=== PATIENT | male | born 1945 | race Caucasian/White ===

== ENCOUNTER 2017-09-19 09:05 | Outpatient (CLI) | payer MEDICARE ==
[2017-09-19 10:21] LABS: Anion Gap 9 mmol/L (10-20); BUN (Urea Nitrogen) 24 mg/dL (8.4-25.7); Calc. Creatinine Clearance 0 mL/min (70-130); Calcium 9.2 mg/dL (7.8-10.44); Carbon Dioxide 31 mmol/L (23-31); Chloride 102 mmol/L (98-107); Estimated GFR-MDRD 79; Glucose 116 mg/dL (83-110); Potassium 3.4 mmol/L (3.5-5.1); Sodium 139 mmol/L (136-145)
--- NOTE | 2017-09-23 08:46 | EKG ---
Test Reason : Blood Pressure : / mmHG Vent. Rate : 067 BPM Atrial Rate : 067 BPM P-R Int : 162 ms QRS Dur : 096 ms QT Int : 424 ms P-R-T Axes : 047 038 077 degrees QTc Int : 448 ms Normal sinus rhythm Normal ECG When compared with ECG of 22-FEB-2007 10:37, No significant change was found Confirmed by NANO THORNTON MD ([id number]) on 09/23/2017 8:46:11 AM Referred By: MARS Confirmed By:NANO THORNTON MD
== END 2017-09-19 09:06 | disposition home or self-care (01) ==
LOC: LABBT 09:05
PROVIDERS: ATTEND Neurological Surgery
DX: Z01.818 Encounter for other preprocedural examination (principal); M48.061 Spinal stenosis, lumbar region without neurogenic claudication
CPT/HCPCS: 80048; 93005; 93010

== ENCOUNTER 2017-09-24 07:57 | Day surgery (SDC) | payer MEDICARE ==
[2017-09-19 09:22] VITALS: BMI 32.5
--- NOTE | 2017-09-23 22:16 | HP ---
HISTORY OF PRESENT ILLNESS: Mr. Rankin is a pleasant 71-year-old man known to us from prior evaluati on of both neck and low back complaints, who returns now from a referral by Dr. Yan for an MR I at the [facility] of the lumbar spine that reveals profound stenosis centrally at L2-L3 as w ell as L1-L2, although this is to a lesser extent. His major symptom presentation fits perfectly wit h that of neurogenic claudication. He is ready to discuss surgery at the outset of our conversation. PAST MEDICAL HISTORY: Significant for hypertension, back and neck pain, asthma. PAST SURGICAL HISTORY: Appendectomy, colon resection, lumbar back surgery, neck surgery. CURRENT MEDICATIONS: Lisinopril, hydrochlorothiazide, carvedilol, hydrocodone, meloxicam, amlodipine , Symbicort, gabapentin, and tizanidine. ALLERGIES: No known drug allergies. PHYSICAL EXAMINATION: GENERAL: The patient is alert and oriented x3. EXTREMITIES: His gait is slow and antalgic. Lower extremity motor exam is normal. He has a negativ e straight leg raise bilaterally. ASSESSMENT: Lumbar stenosis, neurogenic claudication. PLAN: Dr. Nguyen met with the patient, reviewed imaging, and advocated for an L1 through L3 decompres ike. He explained to the patient the risks, benefits, and alternatives to the procedure. The patie nt expressed understanding and would like to move forward with surgery as discussed. I do believe th at the patient is mentally competent and capable of making medical decisions for himself. We will mo ve forward with surgery as planned. Ruben Gonzalez PA-C dictating for Dr. Nguyen.
[2017-09-24] MEDS ORDERED: Fentanyl 100 MCG/2 ML VIAL ONE ×2 (08:39→13:02)
[2017-09-24] MEDS ORDERED: CEFAZOLIN/Water 2 GM/20 ML SYRINGE ONE ×2 (08:47→14:30)
[2017-09-24] MEDS ORDERED: Thrombin 5000 UNITS/5 ML VIAL ONE (09:16)
[2017-09-24] MEDS ORDERED: Bupivacaine HCl 0.5%/Epinephrine 1:200,000/PF 30 ml Vial ONE (09:16)
[2017-09-24] MEDS ORDERED: PHENYLEPHRINE-NS 100 MCG/ML 10 ML SYRINGE ONE (12:03)
[2017-09-24] MEDS ORDERED: PROPOFOL 200 MG/20 ML VIAL ONE (12:03)
[2017-09-24] MEDS ORDERED: ePHEDrine/0.9% NaCl/PF SYRINGE 50 mg/10 ml ONE (12:03)
[2017-09-24] MEDS ORDERED: Ketorolac Tromethamine 30 MG/ML VIAL ONE (12:03)
[2017-09-24] MEDS ORDERED: Lidocaine 1% PF 5 ML VIAL ONE (12:03)
--- NOTE | 2017-09-24 13:40 | OP ---
DATE OF PROCEDURE: 09/24/2017 SURGEON: Mohinder Nguyen M.D. HISTOLOGY SPECIALIST: Ruben Gonzalez PA-C INDICATION: Pain. DIAGNOSIS: Lumbar stenosis. PROCEDURE: L1 through L3 lumbar decompression. ANESTHESIA: General. TECHNIQUE: The patient was brought into the operating room and placed under general anesthesia. He was flipped from a supine to prone position on the operating room table. A linear incision was plann ed spanning L1 through L3. After prepping and draping and after an appropriate operative pause, the incision was created. The soft tissues swept away from midline. Self-retaining retractors were plac ed in the wound for optimal exposure. After confirming the appropriate levels of C-arm fluoroscopy, an Adson rongeur was used to remove the spinous process of L2, the inferior aspect of L1 and superior aspect of L3. High-speed cutting drill bit as well as 2, 3 and 4 mm Kerrisons were used to perform a laminectomy. Laminectomy was extended laterally to encompass the medial aspect of the facet joints . At the end the procedure, L1-2 and L2-3 segments were decompressed. The wound was irrigated. Hem ostasis was maintained throughout. The wound was then closed in anatomic layers and a pressure dress ing was applied. There were no known procedural complications.
== END 2017-09-24 15:15 | disposition home or self-care (01) ==
LOC: SDC 07:57
PROVIDERS: ATTEND Neurological Surgery
PROC: 00NY0ZZ Release Lumbar Spinal Cord, Open Approach (ICD-10-PCS; principal; 2017-09-24)
DX: M48.062 Spinal stenosis, lumbar region with neurogenic claudication (principal); I10 Essential (primary) hypertension; J45.909 Unspecified asthma, uncomplicated; M19.90 Unspecified osteoarthritis, unspecified site; Z98.890 Other specified postprocedural states
CPT/HCPCS: 76001; 96374; J0670; J1885; J2001; J2704; J3010

== ENCOUNTER 2019-06-27 08:10 | Outpatient (CLI) | payer MEDICARE ==
[2019-06-27 12:52] LABS: #Eosinphils 0.4 thou/uL (0.0-0.7); #Lymphocytes 1.5 thou/uL (1.20-3.40); #Monocytes 0.7 thou/uL (0.11-0.59); #Neutrophils 3.7 thou/uL (1.40-6.50); %Basophils 0.6 % (0.0-1.0); %Eosinophils 6.8 % (0.0-10.0); %Lymphocytes 24.1 % (21.0-51.0); %Monocytes 10.6 % (0.0-10.0); %Neutrophils 57.9 % (42.0-75.0); Hemoglobin 14.7 g/dL (14.0-18.0); Mean Corpuscular HGB CONC 33.4 g/dL (32.0-36.0); Mean Corpuscular Hemoglobin 31.8 pg (27.0-31.0); Mean Corpuscular Volume 95.2 fL (78.0-98.0); Mean Platelet Volume 7.4 fL (7.4-10.4); Platelet Count 202 thou/uL (130-400); RBC Distribution Width 12.2 % (11.5-14.5); Red Blood Cell (RBC) Count 4.62 mill/uL (4.70-6.10); White Blood Cell (WBC) Count 6.4 thou/uL (4.8-10.8)
[2019-06-27 13:18] LABS: ALT (SGPT) 14 U/L (8-55); AST (SGOT) 19 U/L (5-34); Albumin 4.2 g/dL (3.4-4.8); Alkaline Phosphatase 80 U/L (40-110); Anion Gap 11 mmol/L (10-20); BUN (Urea Nitrogen) 21 mg/dL (8.4-25.7); Bilirubin, Total 0.6 mg/dL (0.2-1.2); Calc. Creatinine Clearance 0 mL/min (70-130); Calcium 9.4 mg/dL (7.8-10.44); Carbon Dioxide 32 mmol/L (23-31); Chloride 102 mmol/L (98-107); Estimated GFR-MDRD 83; Globulin 2.5 g/dL (2.4-3.5); Glucose 86 mg/dL (83-110); Potassium 4.4 mmol/L (3.5-5.1); Protein, Total 6.7 g/dL (5.8-8.1); Sodium 141 mmol/L (136-145)
== END 2019-06-27 08:11 | disposition home or self-care (01) ==
LOC: LABBT 08:10
PROVIDERS: ATTEND Internal Medicine Cardiovascular Disease
DX: Z01.812 Encounter for preprocedural laboratory examination (principal); R94.39 Abnormal result of other cardiovascular function study
CPT/HCPCS: 80053; 85025

== ENCOUNTER → 2019-07-02 | Day surgery (SDC) | payer MEDICARE ==
[2019-06-27 11:43] VITALS: BMI 32.3
[~2019-07-02] MED LIST: Diazepam 5 MG TAB ONE; Fentanyl 100 MCG/2 ML VIAL ONE; Heparin (Artline) 1,000 ML ONE; Heparin 10,000 UNITS/1 ML VIAL ONE; Iopamidol 370 76% 100 ML VIAL ONE; Lidocaine 1% (PF) 30 ML VIAL ONE; Midazolam HCl 2 mg/2 ml Vial ONE; Nitroglycerin 100MG/250ML BOT 250 ML ONE; Verapamil 5 MG/2 ML VIAL ONE
== END ==
LOC: CCL 05:53
PROVIDERS: ATTEND Internal Medicine Cardiovascular Disease
PROC: 4A023N7 Measurement of Cardiac Sampling and Pressure, Left Heart, Percutaneous Approach (ICD-10-PCS; principal; 2019-07-02)
PROC: B2111ZZ Fluoroscopy of Multiple Coronary Arteries using Low Osmolar Contrast (ICD-10-PCS; 2019-07-02)
DX: I25.110 Atherosclerotic heart disease of native coronary artery with unstable angina pectoris (principal); E78.00 Pure hypercholesterolemia, unspecified; I10 Essential (primary) hypertension; J45.909 Unspecified asthma, uncomplicated; E78.5 Hyperlipidemia, unspecified; M19.90 Unspecified osteoarthritis, unspecified site; K21.9 Gastro-esophageal reflux disease without esophagitis; Z87.891 Personal history of nicotine dependence; Z79.1 Long term (current) use of non-steroidal anti-inflammatories (NSAID); Z79.82 Long term (current) use of aspirin; Z79.899 Other long term (current) drug therapy; Z90.49 Acquired absence of other specified parts of digestive tract
CPT/HCPCS: 93458; 99152; C1769; J1644; J2001; J2250; J3010; Q9967

== ENCOUNTER 2019-10-16 12:52 | Outpatient (CLI) | payer MEDICARE ==
--- NOTE | 2019-10-16 13:15 | RAD ---
Chest 2 views HISTORY: Dyspnea. FINDINGS: Cardiac silhouette and pulmonary vasculature are unremarkable. Mediastinum is midline. No lobar consolidation or evidence of pneumothorax. Irregular shaped 0.8 cm nodular density projects over the left upper lobe on the frontal view. Possib ly over the anterior aspect of the lungs on the lateral view. A very ill-defined area of increased density, somewhat triangular, projects over the right mid chest, possibly overlying the katelynn on the lateral view. No pleural fluid evident. Postoperative changes of the cervical spine partially visualized. IMPRESSION : Small nodular densities projecting over each lung. Please consider dedicated CT chest with IV contras t for better evaluation.
== END 2019-10-16 12:53 | disposition home or self-care (01) ==
LOC: BICRAD 12:52
PROVIDERS: ATTEND Family Medicine
DX: R06.00 Dyspnea, unspecified (principal); J98.4 Other disorders of lung
CPT/HCPCS: 71046

== ENCOUNTER 2019-10-20 14:58 | Inpatient (IN) | payer MEDICARE ==
[2019-10-20] MEDS ORDERED: Aspirin 325 MG TAB ONE (15:26)
[2019-10-20] MEDS ORDERED: Diltiazem 125 MG/25 ML ONE (15:26)
[2019-10-20 15:36] LABS: #Basophils 0.1 thou/uL (0.0-0.2); #Eosinphils 0.4 thou/uL (0.0-0.7); #Lymphocytes 1.3 thou/uL (1.20-3.40); #Monocytes 0.7 thou/uL (0.11-0.59); #Neutrophils 4.8 thou/uL (1.40-6.50); %Basophils 0.7 % (0.0-1.0); %Eosinophils 5.3 % (0.0-10.0); %Lymphocytes 18.2 % (21.0-51.0); %Monocytes 9.4 % (0.0-10.0); %Neutrophils 66.4 % (42.0-75.0); Hemoglobin 14.3 g/dL (14.0-18.0); Mean Corpuscular HGB CONC 32.9 g/dL (32.0-36.0); Mean Corpuscular Hemoglobin 31.8 pg (27.0-31.0); Mean Corpuscular Volume 96.6 fL (78.0-98.0); Mean Platelet Volume 7.8 fL (7.4-10.4); Platelet Count 208 thou/uL (130-400); Red Blood Cell (RBC) Count 4.51 mill/uL (4.70-6.10); White Blood Cell (WBC) Count 7.2 thou/uL (4.8-10.8)
--- NOTE | 2019-10-20 15:49 | RAD ---
RADIOGRAPH CHEST 1 VIEW: DATE: 10/20/2019 HISTORY: 73-year-old male with dyspnea FINDINGS: There are no airspace densities, pulmonary edema, pneumothorax, or cardiomegaly. The lateral costophr enic angles are sharp. Right hilum appears prominent. IMPRESSION: No acute cardiopulmonary findings.
[2019-10-20] MEDS ORDERED: Diltiazem HCl 125 MG, Admixture Fee 1 EACH in Sodium Chloride 0.9% 100 ML IVPB SCH (16:00)
[2019-10-20 16:01] LABS: ALT (SGPT) 28 U/L (8-55); AST (SGOT) 20 U/L (5-34); Albumin 4.2 g/dL (3.4-4.8); Alkaline Phosphatase 91 U/L (40-110); Anion Gap 12 mmol/L (10-20); BUN (Urea Nitrogen) 20 mg/dL (8.4-25.7); Bilirubin, Total 0.5 mg/dL (0.2-1.2); Calc. Creatinine Clearance 0 mL/min (70-130); Calcium 9.2 mg/dL (7.8-10.44); Carbon Dioxide 27 mmol/L (23-31); Chloride 102 mmol/L (98-107); Estimated GFR-MDRD 78; Globulin 2.9 g/dL (2.4-3.5); Glucose 117 mg/dL (83-110); Potassium 3.6 mmol/L (3.5-5.1); Protein, Total 7.1 g/dL (5.8-8.1); Sodium 137 mmol/L (136-145)
[2019-10-20] MEDS ORDERED: Enoxaparin Sodium 30 MG/0.3 ML SYRINGE ONE (16:57)
[2019-10-20] MEDS ORDERED: Enoxaparin Sodium 80 MG/0.8 ML SYRINGE ONE (16:57)
[2019-10-20 18:31] VITALS: BMI 33.0
[2019-10-20] MEDS ORDERED: Acetaminophen 325 MG TAB PO PRN (18:36)
[2019-10-20] MEDS ORDERED: Ondansetron PF 4 MG/2 ML Vial IVP PRN (18:36)
[2019-10-20] MEDS ORDERED: Ondansetron ODT 4 MG TAB SL PRN (18:36)
[2019-10-20] MEDS ORDERED: HYDROcodone/Acetaminophen 5/325 mg Tablet PO PRN ×2 (18:36)
[2019-10-20] MEDS ORDERED: Furosemide 40 MG/4 ML VIAL SLOW IVP SCH (19:30)
[2019-10-20] MEDS ORDERED: Diltiazem 125 MG in Sodium Chloride 0.9% 100 ML IVPB SCH (19:45)
[2019-10-20] MEDS: Gabapentin 300 MG CAP PO SCH (20:11)
[2019-10-20] MEDS: Atorvastatin Calcium 10 MG TAB PO SCH (20:11)
[2019-10-20] MEDS: HYDROcodone/Acetaminophen 7.5/325 mg Tablet PO PRN (22:53)
--- NOTE | 2019-10-21 01:23 | HP ---
CHIEF COMPLAINT: Shortness of breath. HISTORY OF PRESENT ILLNESS: The patient is a very pleasant 73-year-old male with a past medical history of hypertension, obesity, who presents to the hospital with complaints of shortness of breath going on since last week. The patient states that a few times prior to this, he has felt diaphoresis and some palpitations, however, lasting for only few minutes and he would feel weak all over, which would subside. The patient states that at times, he has been following up with his primary care doctor feeling very strange. He used the word "muscled head." The patient stated that he was going to get worked up for this since this has been going on and off for the past more than few weeks, maybe to months. The patient stated that he went to his primary care doctor last week who ordered a chest x-ray and he was supposed to follow up the results of the chest x-ray, especially since he was having some pain under his diaphragm. At this time, the patient came into the hospital for worsening shortness of breath. The patient states that he has been having shortness of breath on exertion and feels generalized weakness. He is also having a tightness around his lower breast area. He complains of orthopnea and PND. The patient also states that he has gained some weight which has been very quickly for the past few days. PAST MEDICAL HISTORY: He has a history of hypertension, hypercholesterolemia, arthritis, asthma. PAST SURGICAL HISTORY: He has had appendectomy, cervical surgeries, and back surgeries. He has also had angio done by Dr. Gomez in 2019 and no intervention was done. ALLERGIES: HE HAS NO KNOWN DRUG ALLERGIES. MEDICATIONS: He is on aspirin 81 mg daily. He is also on meloxicam one tab p.o. daily, lisinopril 20 mg daily, isosorbide 30 mg daily, hydrochlorothiazide 50 mg daily, carvedilol 6.25 one p.o. b.i.d., Symbicort 80/4.5 two puffs in the morning. He is also on gabapentin 300 mg at bedtime, hydrocodone as needed, and hydrochlorothiazide 50 mg q.a.m. REVIEW OF SYSTEMS: All negative except for the ones mentioned above in HPI. FAMILY HISTORY: Father had heart disease and father at the age of 57 with stomach cancer and mother had heart disease. PHYSICAL EXAMINATION: VITAL SIGNS: Temperature 98.1, pulse of 116, respiratory rate 20, sats 97% on room air, blood pressure 156/81. GENERAL: The patient is awake, alert, and oriented x3. Does not appear in distress. CARDIOVASCULAR: Irregularly irregular. LUNGS: Clear to auscultation. No rhonchi or wheezes noted. ABDOMEN: Soft, nontender. Bowel sounds are present x2. EXTREMITIES: Mild 1+ lower extremity edema. NEUROLOGIC: No focal deficits noted. SKIN: No cuts, lesions, or bruises noted. LABORATORY RESULTS: Sodium of 137, potassium of 3.6, BUN of 20, creatinine 0.94. Troponins x2 were negative. BNP is 353. WBC 7.2, hemoglobin of 14.3, hematocrit 43.5, platelets of 208. He did have a chest x-ray done. A TSH is pending. Chest x-ray did not show any acute abnormalities. ASSESSMENT AND PLAN: The patient is a very pleasant 73-year-old male who presents to the hospital with complaints of shortness of breath. 1. Atrial fibrillation with rapid ventricular response. We will start the patient on diltiazem. He got 20 IV push in the ER. We will start him on 7.5 for better rate control. We will check a TSH. Cardiology has been consulted. Echocardiogram has been ordered. We will also put him on Lovenox given his CHADs-VASC score is probably greater than 2. 2. Hypertension. Again, we will continue his home medications. 3. Hyperlipidemia. We will continue his home medications. 4. Deep venous thrombosis prophylaxis. The patient is already on Lovenox. We will also keep patient n.p.o. after midnight for possible procedures. On resuscitation, he is a full code. Job ID: [id number]
[2019-10-21 05:12] LABS: Platelet Count 200 thou/uL (130-400)
[2019-10-21] MEDS: Mometasone 100 MCG/Formoterol 5 MCG 120 PUFF INHALER INH SCH ×2 (07:33→18:43)
[2019-10-21] MEDS ORDERED: Enoxaparin Sodium 120 MG/0.8 ML SYRINGE SC SCH (09:00)
[2019-10-21] MEDS: Aspirin 81 mg Enteric Coated Tablet PO SCH (09:18)
[2019-10-21] MEDS ORDERED: Furosemide 40 MG/4 ML VIAL SLOW IVP SCH (10:00)
[2019-10-21] MEDS ORDERED: Diltiazem 125 MG in Sodium Chloride 0.9% 100 ML IVPB SCH (10:00)
--- NOTE | 2019-10-21 13:13 | PDOC.HOSPP ---
- Subjective Encounter Date: 10/21/19 Encounter Time: 10:30 Subjective: pt up in bed no complains. Pt states that at times he does get some chest pressure. - Objective Vital Signs & Weight: Vital Signs (12 hours) Temp Pulse Resp BP Pulse Ox 10/21/19 11:59 98.4 F 105 H 18 151/81 H 95 10/21/19 07:33 108 H 14 97 10/21/19 07:20 98.3 F 90 17 149/74 H 97 10/21/19 03:27 98.4 F 101 H 17 103/68 96 Weight Weight 236 lb 12.8 oz I&O: 10/20/19 10/21/19 10/22/19 06:59 06:59 06:59 Intake Total 203 Output Total 2550 Balance -2347 Result Diagrams: 10/21/19 04:53 10/21/19 04:53 Hospitalist ROS - Review of Systems Cardiovascular: denies: chest pain, palpitations, orthopnea, paroxysmal noc. dyspnea, edema, light headedness, other Gastrointestinal: denies: nausea, vomiting, abdominal pain, diarrhea, constipation, melena, hematochezia, other Genitourinary: denies: dysuria, frequency, incontinence, hematuria, retention, other - Medication Medications: Active Medications Generic Name Dose Route Start Last Admin Trade Name Freq PRN Reason Stop Dose Admin Hydrocodone Bitart/Acetaminophen 1 tab 10/20/19 19:39 10/20/19 22:53 [place] 7.5/325 PO 1 tab Q6H PRN Administration Pain Aspirin 81 mg 10/21/19 09:00 10/21/19 09:18 Ecotrin PO 81 mg DAILY ALICE Administration Atorvastatin Calcium 10 mg 10/20/19 21:00 10/20/19 20:11 Lipitor PO 10 mg HS ALICE Administration Furosemide 40 mg 10/21/19 10:00 10/21/19 11:39 Lasix SLOW IVP 10/21/19 14:00 40 mg NOW ALICE Administration Gabapentin 300 mg 10/20/19 21:00 10/20/19 20:11 Neurontin PO 300 mg HS ALICE Administration Mometasone Furoate/Formoterol Fumar 2 puff 10/21/19 06:30 10/21/19 07:33 Dulera 100 Mcg/5 Mcg Inhaler INH 2 puff BID-RT ALICE Administration Sodium Chloride 10 ml 05/18/20 21:00 10/21/19 09:19 Flush - Normal Saline IVF 10 ml Q12HR ALICE Administration - Exam Neck: negative: supple, symmetric, no JVD, no thyromegaly, no lymphadenopathy, no carotid bruit, JVD Heart: negative: RRR, no murmur, no gallops, no rubs, normal peripheral pulses, irregular, diminshed peripheral pulses, murmur present, II/IV, III/IV Respiratory: negative: CTAB, no wheezes, no rales, no ronchi, normal chest expansion, no tachypnea, normal percussion, rales, rhonchi, tachypneic, wheezes Gastrointestinal: negative: soft, non-tender, non-distended, normal bowel sounds , no palpable masses, no hepatomegaly, no splenomegaly, no bruit, no guarding, no rigidity, tender to palpation, distended, diminished bowl sounds, voluntary guarding Hosp A/P (1) Atrial fibrillation with RVR Code(s): I48.91 - UNSPECIFIED ATRIAL FIBRILLATION Status: Acute (2) HTN (hypertension) Code(s): I10 - ESSENTIAL (PRIMARY) HYPERTENSION Status: Acute (3) Obesity Code(s): E66.9 - OBESITY, UNSPECIFIED Status: Acute - Plan will stop lovenox and start pt on eliquis. will give one dose of Lasix iv. will titrate pt's cardizem and see if that controls to home.
--- NOTE | 2019-10-21 14:35 | CON ---
DATE OF CONSULTATION: REASON FOR CONSULTATION: New onset atrial fibrillation. HISTORY OF PRESENT ILLNESS: Mr. Rankin is a very pleasant 73-year-old gentleman, whom I have seen and evaluated in the past. The patient recently underwent coronary angiography in June of 2019. He was found to have moderate coronary artery disease. He recently presented with increased shortness of breath. He was found to be in atrial fibrillation with RVR. This was felt to be a new finding. PAST MEDICAL HISTORY: Asthma, hypertension, hyperlipidemia, arthritis, bowel obstruction, acid reflux. HOME MEDICATIONS: Include; 1. Simvastatin. 2. Pepcid. 3. Symbicort. 4. ProAir. 5. Meloxicam. 6. Lisinopril. 7. Hydrochlorothiazide. 8. Carvedilol. 9. Gabapentin. 10. Aspirin. 11. Potassium. 12. Multivitamin. 13. Laona-3. 14. Magnesium. 15. Isosorbide. PAST SURGICAL HISTORY: Appendectomy, colon resection, back surgery. SOCIAL HISTORY: No current tobacco or alcohol use. ALLERGIES: NONE. REVIEW OF SYSTEMS: A 10-point review of systems is reviewed as above, otherwise negative. PHYSICAL EXAMINATION: GENERAL: Patient is a pleasant male, who is in no acute distress. The patient appears their stated age. VITAL SIGNS: Blood pressure 151/81, pulse 105, respirations 20. He is currently on IV Cardizem at 7.5 mg/hour. NEUROLOGIC: The patient is alert and oriented x3 with no focal neurologic deficits. HEENT: Sclerae without icterus. Mouth has moist mucous membranes with normal pallor. NECK: No JVD. Carotid upstroke brisk. No bruits bilaterally. LUNGS: Clear to auscultation with unlabored respirations. BACK: No scoliosis or kyphosis. CARDIAC: Irregularly irregular. ABDOMEN: Soft, nontender, nondistended. No peritoneal signs present. No hepatosplenomegaly. No abnormal striae. EXTREMITIES: 2+ femoral and 2+ dorsalis pedis pulses. No cyanosis, clubbing, or edema. SKIN: No gross abnormalities. PERTINENT LABORATORY DATA: Hemoglobin 14. Creatinine 0.9. IMPRESSION: 1. New onset atrial fibrillation. 2. Moderate coronary artery disease. RECOMMENDATIONS: 1. Continue IV Cardizem. 2. Increase carvedilol to 6.25 mg one p.o. t.i.d. 3. Agree with Eliqujose antonio. 4. Review echo. Job ID: [id number]
[2019-10-21] MEDS ORDERED: Ondansetron PF 4 MG/2 ML Vial SLOW IVP PRN (18:42)
[2019-10-21] MEDS ORDERED: Acetaminophen 325 MG TAB PO PRN (18:42)
[2019-10-21] MEDS: Diltiazem 125 MG in Sodium Chloride 0.9% 100 ML IVPB SCH (18:50)
[2019-10-21] MEDS: Atorvastatin Calcium 10 MG TAB PO SCH (19:59)
[2019-10-21] MEDS: Apixaban 5 MG TAB PO SCH (19:59)
[2019-10-21] MEDS: Gabapentin 300 MG CAP PO SCH (19:59)
[2019-10-21] MEDS ORDERED: Carvedilol 6.25 MG TAB PO SCH ×2 (21:00)
[2019-10-21] MEDS: HYDROcodone/Acetaminophen 7.5/325 mg Tablet PO PRN (22:07)
[2019-10-22] MEDS: Diltiazem 125 MG in Sodium Chloride 0.9% 100 ML IVPB SCH (03:28)
[2019-10-22] MEDS: Mometasone 100 MCG/Formoterol 5 MCG 120 PUFF INHALER INH SCH ×2 (07:19→18:21)
[2019-10-22] MEDS: Aspirin 81 mg Enteric Coated Tablet PO SCH (08:52)
[2019-10-22] MEDS: Carvedilol 6.25 MG TAB PO SCH ×2 (08:52→20:48)
[2019-10-22] MEDS: Apixaban 5 MG TAB PO SCH ×2 (08:53→20:47)
[2019-10-22] MEDS ORDERED: Diltiazem 125 MG in Sodium Chloride 0.9% 100 ML IVPB SCH (09:00)
--- NOTE | 2019-10-22 11:25 | PDOC.EP ---
- Subjective Date: 10/22/19 Time: 11:24 Interval History: follow up for atrial fibrillation. Mr Chucho feels well. His HR are better controlled today and his dilt gtt is at 5mg/hr. He started his blood thinner last night and has had no obvious bleeding. - Review of Systems Constitutional: denies: chills, fever, malaise, sweats, weakness Respiratory: denies: cough, hemoptysis, pleuritic pain, shortness of breath, sputum, wheezing Cardiology: denies: chest pain, edema, heart racing, light headedness, palpitations, passing out Gastrointestinal: denies: abdominal pain, constipation, diarrhea - Objective Allergies/Adverse Reactions: Allergies Allergy/AdvReac Type Severity Reaction Status Date / Time No Known Allergies Allergy Verified 10/20/19 21:10 Current Medications Acetaminophen (Tylenol) 650 mg PO Q4H PRN PRN Reason: Headache/Fever/MILD Pain 1-3 Last Admin: 10/21/19 18:51 Dose: 650 mg Hydrocodone Bitart/Acetaminophen ([place] 7.5/325) 1 tab PO Q6H PRN PRN Reason: Pain Last Admin: 10/21/19 22:07 Dose: 1 tab Apixaban (Eliquis) 5 mg PO BID [facility] Last Admin: 10/22/19 08:53 Dose: 5 mg Aspirin (Ecotrin) 81 mg PO DAILY [facility] Last Admin: 10/22/19 08:52 Dose: 81 mg Atorvastatin Calcium (Lipitor) 10 mg PO HS [facility] Last Admin: 10/21/19 19:59 Dose: 10 mg Carvedilol (Coreg) 12.5 mg PO BID [facility] Last Admin: 10/22/19 08:52 Dose: 12.5 mg Diltiazem HCl (Cardizem) 30 mg PO ACHS PRN PRN Reason: tachycardia Diltiazem HCl (Cardizem Cd) 180 mg PO DAILY [facility] Diltiazem HCl (Cardizem Cd) 180 mg PO NOW [facility] Stop: 10/22/19 14:00 Gabapentin (Neurontin) 300 mg PO HS [facility] Last Admin: 10/21/19 19:59 Dose: 300 mg Diltiazem HCl 125 mg/ Sodium (Chloride) 125 mls @ 5 mls/hr IVPB INF [facility]; Protocol Mometasone Furoate/Formoterol Fumar (Dulera 100 Mcg/5 Mcg Inhaler) 2 puff INH BID-RT ALICE Last Admin: 10/22/19 07:19 Dose: 2 puff Ondansetron HCl (Zofran) 4 mg SLOW IVP Q6H PRN PRN Reason: Nausea/Vomiting Last Admin: 10/21/19 18:51 Dose: 4 mg Sodium Chloride (Flush - Normal Saline) 10 ml IVF Q12HR ALICE Last Admin: 10/22/19 08:53 Dose: Not Given Sodium Chloride (Flush - Normal Saline) 10 ml IVF PRN PRN PRN Reason: Saline Flush Vital Signs & Weight: Vital Signs Temp Pulse Resp BP Pulse Ox 10/22/19 07:30 97.6 F 75 18 140/83 95 10/22/19 07:19 87 14 98 10/22/19 03:09 98.0 F 60 18 107/55 L 95 Weight 231 lb I/O: I/O 10/21/19 10/22/19 10/23/19 06:59 06:59 06:59 Intake Total 203 1214 Output Total 2552 3725 Balance -3350 -729 - Quality Measures Condition: Atrial Fibrillation/Flutter (hx or current) CV meds: Eliquis: Yes - Physical Exam General: alert & oriented x3, appears well, no apparent distress, speech clear, affect appropriate HEENT: mucus membranes moist, normocephaly Neck: supple neck, midline trachea, no JVD/HJR, no masses, no bruit, no lymphadenopathy, no thromegaly Cardiology: no murmur, PMI nondisplaced, irregularly irregular, tachycardia Lungs: clear to auscultation, normal breath sounds, no wheeze, rales, rhonchi Neurology: cranial nerve 2-12 intact, grossly intact, no lateralizing findings - Chadsvasc Risk factors Hypertension: 1 Age >75: 2 Vascular disease: 1 Risk Score: 4 - Labs Result Diagrams: 10/21/19 04:53 10/21/19 04:53 - EKG Interpretation EKG Method: Telemetry EKG shows: Atrial fibrillation - Assessment/Plan Assessment/Plan: 1. Atrial fibrillation with rapid ventricular rate, new onset - moderate rate control on diltiazem drip at 5 mg/hour, ventricular rates 10 -110 beats per minute. drip was as high as 15 mg/hour in the past 24 hours - adding oral diltiazem 240 mg daily with additional 30 mg p.o. p.r.n. heart rate greater than 120bpm - plan to rate control while initiating anticoagulation for 30 days before attempting to restore sinus rhythm - minimally symptomatic with controlled rates, fatigue low energy levels and mental fogginess experienced with RVR 2. HTN 3. OAC - patient reports heavy NSAID use. Recommend minimizing in NSAIDs now that Eliquis is initiated. Watch for signs of upper GI bleed as he has a history of gastric ulcers 4. High risk for sleep apnea - recommend sleep study and treatment with CPAP if indicated as there was a high correlation between atrial fibrillation and untreated/undiagnosed KAJAL I added daily oral diltiazem with p.r.n. diltiazem for breakthrough tachycardia. Hope to wean off IV diltiazem now that p.o. has been started. echo results are pending. if heart rates are stable while he transitions off his IV drip I anticipate he will be ready for discharge in the morning. Will see back in 4-6 weeks. I anticipate he will need a PVAI in the future but could attempt AAD therapy as well. Cannot give recommendations on this until echo is completed.
[2019-10-22] MEDS ORDERED: Diltiazem HCl SR 60 mg Capsule PO SCH (12:15)
--- NOTE | 2019-10-22 13:17 | PDOC.HOSPP ---
- Subjective Encounter Date: 10/22/19 Encounter Time: 10:00 Subjective: pt up in bed no complains - Objective Vital Signs & Weight: Vital Signs (12 hours) Temp Pulse Resp BP Pulse Ox 10/22/19 11:25 97.8 F 78 16 124/74 95 10/22/19 07:30 97.6 F 75 18 140/83 95 10/22/19 07:19 87 14 98 10/22/19 03:09 98.0 F 60 18 107/55 L 95 Weight Weight 231 lb I&O: 10/21/19 10/22/19 10/23/19 06:59 06:59 06:59 Intake Total 203 1214 Output Total 2550 2015 Balance -3673 -161 Result Diagrams: 10/21/19 04:53 10/21/19 04:53 Hospitalist ROS - Review of Systems Cardiovascular: denies: chest pain, palpitations, orthopnea, paroxysmal noc. dyspnea, edema, light headedness, other Gastrointestinal: denies: nausea, vomiting, abdominal pain, diarrhea, constipation, melena, hematochezia, other Genitourinary: denies: dysuria, frequency, incontinence, hematuria, retention, other - Medication Medications: Active Medications Generic Name Dose Route Start Last Admin Trade Name Freq PRN Reason Stop Dose Admin Acetaminophen 650 mg 10/21/19 18:42 10/21/19 18:51 Tylenol PO 650 mg Q4H PRN Administration Headache/Fever/MILD Pain 1-3 Hydrocodone Bitart/Acetaminophen 1 tab 10/20/19 19:39 10/21/19 22:07 [place] 7.5/325 PO 1 tab Q6H PRN Administration Pain Apixaban 5 mg 10/21/19 21:00 10/22/19 08:53 Eliquis PO 5 mg BID ALICE Administration Aspirin 81 mg 10/21/19 09:00 10/22/19 08:52 Ecotrin PO 81 mg DAILY ALICE Administration Atorvastatin Calcium 10 mg 10/20/19 21:00 10/21/19 19:59 Lipitor PO 10 mg HS ALICE Administration Carvedilol 12.5 mg 10/22/19 09:00 10/22/19 08:52 Coreg PO 12.5 mg BID ALICE Administration Diltiazem HCl 60 mg 10/22/19 12:15 10/22/19 12:28 Cardizem Sr PO 10/22/19 14:00 60 mg NOW ALICE Administration Gabapentin 300 mg 10/20/19 21:00 10/21/19 19:59 Neurontin PO 300 mg HS ALICE Administration Mometasone Furoate/Formoterol Fumar 2 puff 10/21/19 06:30 10/22/19 07:19 Dulera 100 Mcg/5 Mcg Inhaler INH 2 puff BID-RT ALICE Administration Ondansetron HCl 4 mg 10/21/19 18:42 10/21/19 18:51 Zofran SLOW IVP 4 mg Q6H PRN Administration Nausea/Vomiting Sodium Chloride 10 ml 10/20/19 21:00 10/22/19 08:53 Flush - Normal Saline IVF Not Given Q12HR ALICE - Exam Heart: negative: RRR, no murmur, no gallops, no rubs, normal peripheral pulses, irregular, diminshed peripheral pulses, murmur present, II/IV, III/IV Respiratory: negative: CTAB, no wheezes, no rales, no ronchi, normal chest expansion, no tachypnea, normal percussion, rales, rhonchi, tachypneic, wheezes Gastrointestinal: negative: soft, non-tender, non-distended, normal bowel sounds , no palpable masses, no hepatomegaly, no splenomegaly, no bruit, no guarding, no rigidity, tender to palpation, distended, diminished bowl sounds, voluntary guarding Hosp A/P (1) Atrial fibrillation with RVR Code(s): I48.91 - UNSPECIFIED ATRIAL FIBRILLATION Status: Acute (2) HTN (hypertension) Code(s): I10 - ESSENTIAL (PRIMARY) HYPERTENSION Status: Acute (3) Obesity Code(s): E66.9 - OBESITY, UNSPECIFIED Status: Acute - Plan will stop lovenox and start pt on eliquis. will give one dose of Lasix iv. will titrate pt's cardizem and see if that controls to home. 5.20 pt's cardizem drip tirated to 5.He is dong welll will change to oral meds and continue eliquis. possible home in am per ep.
--- NOTE | 2019-10-22 15:29 | EKG ---
Test Reason : SOB Blood Pressure : / mmHG Vent. Rate : 129 BPM Atrial Rate : 147 BPM P-R Int : 000 ms QRS Dur : 090 ms QT Int : 340 ms P-R-T Axes : 000 033 090 degrees QTc Int : 498 ms Atrial fibrillation with rapid ventricular response Nonspecific ST and T wave abnormality Lateral ischemia Abnormal ECG Confirmed by RENETTA JOHNS, IVETH Mcnamara ([id number]), newspaper editor managing BABITA FORTUNE ([id number]) on 10/22/2019 3:29:00 PM Referred By: Confirmed By:IVETH JACKSON MD
[2019-10-22] MEDS ORDERED: Diltiazem HCl SR 60 mg Capsule PO PRN (18:00)
[2019-10-22] MEDS: Atorvastatin Calcium 10 MG TAB PO SCH (20:48)
[2019-10-22] MEDS: Gabapentin 300 MG CAP PO SCH (20:48)
--- NOTE | 2019-10-23 06:29 | CON ---
DATE OF CONSULTATION: 10/21/2019 Dictated by Juanita Ellis, nurse practitioner, as a scribe for Dr. James Brewster. REASON FOR CONSULTATION: Atrial fibrillation. Dr. James Brewster performed the consultation. HISTORY OF PRESENT ILLNESS: Mr. Rankin is a 73-year-old gentleman, recently diagnosed with atrial fibrillation in [facility]. He presented to the hospital with shortness of breath, but had been experiencing fatigue, low energy levels, and mental fogginess persistently for the past 2 to 3 weeks. Prior to that, he had had intermittent episodes. These symptoms have correlated with his atrial fibrillation while hospitalized. He is a patient of Dr. Gomez, who underwent left heart catheterization in 06/2019 and was found to have moderate coronary artery disease. He also has a history of asthma and fairly substantial arthritis, for which he takes daily hydrocodone as well as meloxicam daily with p.r.n. NSAIDs on top of that. In the past, he has had gastric ulcerations when he was on daily aspirin, but denies any bleeding complications or GI bleeds in the past. He is scheduled to start Eliquis 5 mg twice a day this evening. REVIEW OF SYSTEMS: Mr. Rankin feels well. He denies any heart racing, palpitations, chest pain or pressure, syncope or near syncope, or stroke or stroke-like symptoms. Positive for fatigue, low energy levels, mental fogginess when his heart rate is high. Otherwise, 12-point review of systems is negative. PAST MEDICAL HISTORY: 1. Asthma. 2. Hypertension. 3. Hyperlipidemia. 4. Arthritis. 5. Bowel obstruction. 6. Acid reflux. 7. Gastric ulcerations with high-dose aspirin. 8. Restless legs syndrome. HOME MEDICATIONS: Include: 1. Zocor 20 mg nightly. 2. Fiber daily. 3. Centrum Silver daily. 4. Meloxicam 15 mg q.a.m. 5. Isosorbide mononitrate 30 mg daily. 6. Symbicort two puffs q.a.m. 7. Lisinopril 20 mg q.a.m. 8. Hydrochlorothiazide 50 mg q.a.m. 9. Gabapentin 300 mg nightly. 10. Carvedilol 6.25 mg p.o. b.i.d. 11. Amlodipine 10 mg daily. 12. Potassium 500 mg daily. 13. [place] 325/7.5 p.o. b.i.d. 14. Aspirin 81 mg daily. 15. Motrin 200 mg p.o. q.6 h. p.r.n. 16. Aleve one tablet p.r.n. ALLERGIES: NO KNOWN DRUG ALLERGIES. FAMILY HISTORY: Noncontributory. SOCIAL HISTORY: He is . Denies alcohol, tobacco, or illicit drug use. OBJECTIVE: VITAL SIGNS: Temperature 98.3, pulse 108, blood pressure 149/74, respirations 14, and oxygen 97% on room air. GENERAL: The patient is alert and oriented. His speech is clear. His affect is appropriate. He is in no apparent distress. Resting comfortably in bed at the time of the exam. He is morbidly obese. His is at the bedside. HEENT: Normocephalic and atraumatic. Sclerae anicteric. EOMs are intact. Oral mucosa is moist and pink with adequate dentition. NECK: Large and supple. Jugular venous distention is not evident, though difficult to assess with his large neck. His trachea is midline. There is no lymphadenopathy. LUNGS: Clear to auscultation bilaterally. HEART: Rate is irregularly irregular and rapid. No significant murmur, rub, or gallop is appreciated. PMI nondisplaced. ABDOMEN: Soft, nontender, and obese. No palpable masses. Hepatojugular reflux is negative. EXTREMITIES: Warm and dry to touch. Well perfused without clubbing, cyanosis, or edema. NEUROLOGIC: Grossly intact. Nonfocal. Gait was not assessed. DATABASE: Hematology was unremarkable. Chemistry: Potassium 3.6 and creatinine 0.94. Liver enzymes within normal ranges. BNP 353. TSH 1.78. Telemetry and EKGs show atrial fibrillation with RVR. IMPRESSION: 1. Atrial fibrillation with rapid ventricular rate, new onset. 2. CHADS-VASc score of 4 on the basis of advanced age, hypertension, and vascular disease. 3. Moderate coronary artery disease, discovered by recent left heart catheterization. 4. High risk for sleep apnea. 5. Hypertension. PLAN AND RECOMMENDATIONS: Mr. Rankin is a pleasant 73-year-old gentleman, newly diagnosed with persisting atrial fibrillation in rapid ventricular rate. He is currently on a diltiazem drip with moderate rate control currently at 7.5 mg/hour. His Coreg was recently increased to better control his blood pressure and his heart rate. I discussed atrial fibrillation including the disease process, treatment options, and the risks for stroke. With his CHADS-VASc score of 4, anticoagulation is indicated. He does have a history of ulcerative gastric disease with NSAID therapy. He continues to take multiple NSAID agents and we discussed the risk for GI bleed and also the risk for increased bleeding or clotting when taking NSAIDs with oral anticoagulation. Ultimately, I would recommend he minimize his NSAID use as much as possible while he is on anticoagulation. I would recommend Eliquis 5 mg p.o. b.i.d. and watching closely for signs of upper GI bleeding, which was discussed with the patient. At this point, the duration of his arrhythmias is unknown, so I would recommend rate control with anticoagulation for 30 days before pursuing christian of sinus rhythm. He is minimally symptomatic and has been ambulating in the halls despite his atrial fibrillation. Long-term, I suspect he will require an ablation to treat his arrhythmias. We also discussed the prospect of antiarrhythmic medications as treatment option as well. I recommend an echocardiogram as I would like to assess for any cardiomyopathy that is tachycardia mediated and also to assess his left atrial chamber size as his history suggests that his atrial fibrillation might have been more persisting and long-lasting than a new issue. With his history of asthma, I will plan to add oral diltiazem to his regimen for rate control and try to wean him off the drip instead of further titrating his Coreg. Thank you for allowing me to participate in the care of this patient. Job ID: [id number]
[2019-10-23] MEDS: Mometasone 100 MCG/Formoterol 5 MCG 120 PUFF INHALER INH SCH (07:00)
[2019-10-23] MEDS: Apixaban 5 MG TAB PO SCH (07:48)
[2019-10-23] MEDS: Carvedilol 6.25 MG TAB PO SCH (07:48)
[2019-10-23] MEDS: Aspirin 81 mg Enteric Coated Tablet PO SCH (07:48)
[2019-10-23 12:06] VITALS: BP 121/70; TEMP 97.6
--- NOTE | 2019-10-23 12:56 | PDOC.EP ---
- Subjective Date: 10/23/19 Time: 08:00 Interval History: Electrophysiology follow-up note for atrial fibrillation management. He was experiencing increased dyspnea starting yesterday evening and into this morning. otherwise he feels well and is eager to discharge home. he denies any heart racing, palpitations, chest pain /pressure, syncope or stroke-like symptoms. no overt or obvious bleeding is noted since initiating anticoagulation - Review of Systems Constitutional: denies: chills, malaise, sweats, weakness Respiratory: reports: shortness of breath. denies: cough, hemoptysis, SOB with excertion, sputum, wheezing Cardiology: denies: chest pain, edema, heart racing, light headedness, passing out Gastrointestinal: denies: abdominal pain, constipation, vomitting - Objective Allergies/Adverse Reactions: Allergies Allergy/AdvReac Type Severity Reaction Status Date / Time No Known Allergies Allergy Verified 10/20/19 21:10 Current Medications Acetaminophen (Tylenol) 650 mg PO Q4H PRN PRN Reason: Headache/Fever/MILD Pain 1-3 Last Admin: 10/21/19 18:51 Dose: 650 mg Hydrocodone Bitart/Acetaminophen ([place] 7.5/325) 1 tab PO Q6H PRN PRN Reason: Pain Last Admin: 10/21/19 22:07 Dose: 1 tab Apixaban (Eliquis) 5 mg PO BID [facility] Last Admin: 10/23/19 07:48 Dose: 5 mg Aspirin (Ecotrin) 81 mg PO DAILY [facility] Last Admin: 10/23/19 07:48 Dose: 81 mg Atorvastatin Calcium (Lipitor) 10 mg PO HS [facility] Last Admin: 10/22/19 20:48 Dose: 10 mg Diltiazem HCl (Cardizem) 30 mg PO ACHS PRN PRN Reason: tachycardia Diltiazem HCl (Cardizem Cd) 240 mg PO DAILY [facility] Last Admin: 10/23/19 07:48 Dose: 240 mg Gabapentin (Neurontin) 300 mg PO [facility] Last Admin: 10/22/19 20:48 Dose: 300 mg Mometasone Furoate/Formoterol Fumar (Dulera 100 Mcg/5 Mcg Inhaler) 2 puff INH BID-RT [facility] Last Admin: 10/23/19 07:00 Dose: 2 puff Ondansetron HCl (Zofran) 4 mg SLOW IVP Q6H PRN PRN Reason: Nausea/Vomiting Last Admin: 10/21/19 18:51 Dose: 4 mg Sodium Chloride (Flush - Normal Saline) 10 ml IVF Q12HR [facility] Last Admin: 10/23/19 07:49 Dose: Not Given Sodium Chloride (Flush - Normal Saline) 10 ml IVF PRN PRN PRN Reason: Saline Flush Vital Signs & Weight: Vital Signs Temp Pulse Resp BP Pulse Ox 10/23/19 12:00 97.6 F 70 22 H 121/70 96 10/23/19 07:46 98.3 F 102 H 18 110/78 95 10/23/19 03:56 98.1 F 105 H 18 123/74 96 10/23/19 02:12 94 L Weight 232 lb I/O: I/O 10/22/19 10/23/19 10/24/19 06:59 06:59 06:59 Intake Total 1214 1015 Output Total 1775 850 Balance -561 165 - Quality Measures Condition: Atrial Fibrillation/Flutter (hx or current) CV meds: Eliquis: Yes - Physical Exam General: alert & oriented x3, appears well, no apparent distress, speech clear, affect appropriate HEENT: mucus membranes moist, normocephaly Neck: supple neck, midline trachea, no JVD/HJR, no masses, no bruit, no lymphadenopathy, no thromegaly Cardiology: PMI nondisplaced, irregularly irregular, tachycardia Lungs: normal breath sounds, no wheeze, rales, rhonchi Neurology: cranial nerve 2-12 intact, grossly intact, no lateralizing findings Abdomen: unremarkable, active bowel sounds, no pulsations/bruits Extremities: dry, strong pulses, warm - Chadsvasc Risk factors Hypertension: 1 Age >75: 2 Vascular disease: 1 Risk Score: 4 - Labs Result Diagrams: 10/21/19 04:53 10/21/19 04:53 - EKG Interpretation EKG Method: Telemetry EKG shows: Atrial fibrillation (RVR) - Assessment/Plan Assessment/Plan: 1. Atrial fibrillation with rapid ventricular rate, new onset - plan to rate control while initiating anticoagulation for 30 days before attempting to restore sinus rhythm - minimally symptomatic with controlled rates, fatigue low energy levels and mental fogginess experienced with RVR - dyspnea with increased coreg 2. HTN 3. OAC - patient reports heavy NSAID use. Recommend minimizing/stopping NSAIDs now that Eliquis is initiated. Watch for signs of upper GI bleed as he has a history of gastric ulcers 4. High risk for sleep apnea - recommend sleep study and treatment with CPAP if indicated as there was a high correlation between atrial fibrillation and untreated/undiagnosed KAJAL Mr. Rankin was experiencing increased dyspnea since yesterday evening. This could be related to his RVR possibly had the increased beta-keyur dose with his underlying asthma. I have spoken with Dr. Gomez, we are stopping his Coreg and starting diltiazem 240 mg daily with an additional 30 mg p.o. q.i.d. p.r.n. heart racing. He will continue Eliquis as prescribed in follow-up in 4- 6 weeks for consideration of initiating antiarrhythmic therapy followed by cardioversion versus ablation. okay for discharge by EP
--- NOTE | 2019-10-24 01:30 | DIS ---
DATE OF ADMISSION: 10/20/2019 DATE OF DISCHARGE: 10/23/2019 DISCHARGE DIAGNOSES: As of the following; 1. Atrial fibrillation with rapid ventricular response. 2. Shortness of breath and weakness. 3. Hypertension. HOSPITAL COURSE: The patient is a 73-year-old male who initially presented to the hospital on 10/19 with complaints of shortness of breath and weakness, was found to be in atrial fibrillation with rapid ventricular response. At this time, the patient was given IV Cardizem push and was started on IV Cardizem drip. Based on his CHADS-Vasc score, he was put on Lovenox. He was seen by EP and Cardiology. He was put initially on IV Cardizem drip, was tapered to p.o. Cardizem. The patient had an echocardiogram ordered, however, there were no results from the echocardiogram and I do not see it, but it was done. Per Cardiology, it was okay. MEDICATIONS: He will go home on Zocor 1 p.o. daily, Eliquis 5 mg twice a day, Cardizem mg daily, Cardizem 30 mg as needed, Lasix as needed, lisinopril is decreased to 10 mg, aspirin 81 mg daily, hydrocodone as needed, potassium 500 mg daily, gabapentin 1 tab daily, Symbicort 2 puffs daily, and multivitamin one p.o. daily. The patient's blood pressure medications several of them have been discontinued. DISCHARGE PHYSICAL EXAMINATION: VITAL SIGNS: On discharge are 97.6, 70, 22, 96, 121/70. GENERAL: He is awake, alert, and oriented x3. Does not appear in distress. CV: S1, S2 present. No murmurs, rubs, or gallops. ABDOMEN: Soft and nontender. Bowel sounds are present x2. He will be discharged home. Follow up with his primary and also with EP. He will have to follow with EP if his symptoms continue. He will most likely require either a cardioversion or ablation. Also I went in detail with the patient about his medications. Job ID: [id number]
== END 2019-10-23 15:38 | disposition home or self-care (01) | DRG 310 ==
LOC: ERS 14:58 → 2NO 17:22
PROVIDERS: ADMIT Internal Medicine; ATTEND Internal Medicine
DX: I48.91 Unspecified atrial fibrillation (principal); I10 Essential (primary) hypertension; J45.909 Unspecified asthma, uncomplicated; E78.5 Hyperlipidemia, unspecified; M19.90 Unspecified osteoarthritis, unspecified site; E66.9 Obesity, unspecified; E78.00 Pure hypercholesterolemia, unspecified; K21.9 Gastro-esophageal reflux disease without esophagitis; I25.10 Atherosclerotic heart disease of native coronary artery without angina pectoris; G25.81 Restless legs syndrome; K25.9 Gastric ulcer, unspecified as acute or chronic, without hemorrhage or perforation; Z79.51 Long term (current) use of inhaled steroids; Z68.32 Body mass index [BMI] 32.0-32.9, adult; Z79.82 Long term (current) use of aspirin; Z79.899 Other long term (current) drug therapy; Z90.49 Acquired absence of other specified parts of digestive tract
CPT/HCPCS: 36415; 71045; 80053; 82565; 83880; 84443; 84484; 85014; 85018; 85025; 85049; 93005; 93306; 94760; 96365; 96372; 96376; J1650; J1940; J2405; J3490

== ENCOUNTER 2019-11-05 09:33 | Outpatient (CLI) | payer MEDICARE, OTHER ==
[2019-11-05 13:06] LABS: Hemoglobin 15.7 g/dL (14.0-18.0); Mean Corpuscular HGB CONC 31.8 g/dL (32.0-36.0); Mean Corpuscular Hemoglobin 31.3 pg (27.0-31.0); Mean Corpuscular Volume 98.4 fL (78.0-98.0); Mean Platelet Volume 7.1 fL (7.4-10.4); Platelet Count 226 thou/uL (130-400); Red Blood Cell (RBC) Count 5.02 mill/uL (4.70-6.10); White Blood Cell (WBC) Count 7.2 thou/uL (4.8-10.8)
[2019-11-05 13:10] LABS: INR-International Normal Ratio 1.1; PTT 30.2 sec (22.9-36.1); Prothrombin Time 14.5 sec (12.0-14.7)
[2019-11-05 13:34] LABS: Anion Gap 14 mmol/L (10-20); BUN (Urea Nitrogen) 17 mg/dL (8.4-25.7); Calc. Creatinine Clearance 0 mL/min (70-130); Calcium 9.4 mg/dL (7.8-10.44); Carbon Dioxide 23 mmol/L (23-31); Chloride 104 mmol/L (98-107); Estimated GFR-MDRD 70; Glucose 156 mg/dL (83-110); Potassium 3.7 mmol/L (3.5-5.1); Sodium 137 mmol/L (136-145)
[2019-11-06 11:02] LABS: SARS-CoV-2 MS2 Positive; SARS-CoV-2 N Gene Negative; SARS-CoV-2 S Gene Negative; SARS-CoV-2 orf1ab Negative
== END 2019-11-05 09:34 | disposition home or self-care (01) ==
LOC: LABBT 09:33
PROVIDERS: ATTEND Internal Medicine Cardiovascular Disease
DX: Z01.818 Encounter for other preprocedural examination (principal); Z11.59 Encounter for screening for other viral diseases
CPT/HCPCS: 80048; 85027; 85610; 85730; 93005; U0003; 87635; 93010

== ENCOUNTER 2019-11-07 06:17 | Day surgery (SDC) | payer MEDICARE ==
[2019-11-05 12:17] VITALS: BMI 31.8
[2019-11-07] MEDS ORDERED: PROPOFOL 20 ML ONE (09:04)
--- NOTE | 2019-11-07 09:48 | OP ---
DATE OF PROCEDURE: 11/07/2019 PROCEDURE PERFORMED: External cardioversion report. REASON FOR PROCEDURE: Mr. Rankin is a 73-year-old male with history of new onset atrial fibrillation paroxysmal, recently sinus rhythm, but recurrent again throughout the week and has been on chronic anticoagulation since his last hospitalization and here for a planned cardioversion. DESCRIPTION OF PROCEDURE: The patient received propofol by Anesthesia specialist. After adequate level of sedation achieved, 150 joule shock promptly converted the patient back to normal rhythm, rate about 79, and no complications noted. CONCLUSION: Successful cardioversion. PLAN: Continue Lexa and Kole. Consider outpatient ablation at the patient's preference as I discussed with him. Job ID: [id number]
== END 2019-11-07 10:44 | disposition home or self-care (01) ==
LOC: CCL 06:17
PROVIDERS: ATTEND Internal Medicine Cardiovascular Disease
PROC: 5A2204Z Restoration of Cardiac Rhythm, Single (ICD-10-PCS; principal; 2019-11-07)
DX: I48.0 Paroxysmal atrial fibrillation (principal); I48.92 Unspecified atrial flutter; I10 Essential (primary) hypertension; E78.5 Hyperlipidemia, unspecified; J45.909 Unspecified asthma, uncomplicated; Z79.01 Long term (current) use of anticoagulants; Z79.82 Long term (current) use of aspirin; Z79.899 Other long term (current) drug therapy; Z87.891 Personal history of nicotine dependence
CPT/HCPCS: 92960; 93005; 93010; J2704

== ENCOUNTER 2019-11-19 09:17 | Outpatient (CLI) | payer MEDICARE, OTHER ==
[2019-11-19 14:03] LABS: INR-International Normal Ratio 1.2; Prothrombin Time 14.9 sec (12.0-14.7)
[2019-11-19 14:20] LABS: Mean Corpuscular Hemoglobin 31.7 pg (27.0-31.0); Mean Corpuscular Volume 96.1 fL (78.0-98.0); Mean Platelet Volume 7.6 fL (7.4-10.4); Platelet Count 207 thou/uL (130-400); RBC Distribution Width 12.8 % (11.5-14.5); Red Blood Cell (RBC) Count 4.74 mill/uL (4.70-6.10); White Blood Cell (WBC) Count 5.7 thou/uL (4.8-10.8)
[2019-11-19 14:42] LABS: Anion Gap 13 mmol/L (10-20); BUN (Urea Nitrogen) 17 mg/dL (8.4-25.7); Calc. Creatinine Clearance 0 mL/min (70-130); Calcium 9.2 mg/dL (7.8-10.44); Carbon Dioxide 27 mmol/L (23-31); Chloride 104 mmol/L (98-107); Estimated GFR-MDRD 61; Glucose 180 mg/dL (83-110); Potassium 3.5 mmol/L (3.5-5.1); Sodium 140 mmol/L (136-145)
[2019-11-20 11:56] LABS: SARS-CoV-2 MS2 Positive; SARS-CoV-2 N Gene Negative; SARS-CoV-2 S Gene Negative; SARS-CoV-2 orf1ab Negative
== END 2019-11-19 09:18 | disposition home or self-care (01) ==
LOC: LABBT 09:17
PROVIDERS: ATTEND Internal Medicine Cardiovascular Disease
DX: Z01.812 Encounter for preprocedural laboratory examination (principal); Z11.59 Encounter for screening for other viral diseases; I48.91 Unspecified atrial fibrillation
CPT/HCPCS: 80048; 85027; 85610; 85730; U0003; 87635

== ENCOUNTER 2019-11-26 08:26 | Observation (INO) | payer MEDICARE ==
[2019-11-25 11:04] VITALS: BMI 30.5
[2019-11-26] MEDS ORDERED: Heparin 10,000 UNITS/1 ML VIAL ONE ×3 (10:36→12:05)
[2019-11-26] MEDS ORDERED: Isoproterenol 0.2 MG/1 ML AMP ONE (10:36)
[2019-11-26] MEDS ORDERED: PHENYLEPHRINE-NS 100 MCG/ML 10 ML SYRINGE ONE (11:08)
[2019-11-26] MEDS ORDERED: Dexamethasone 20 MG/5 ML VIAL ONE (11:08)
[2019-11-26] MEDS ORDERED: Glycopyrrolate 0.2 MG/ML 5 ML SYRINGE ONE (11:08)
[2019-11-26] MEDS ORDERED: Lidocaine 1% PF 5 ML VIAL ONE (11:08)
[2019-11-26] MEDS ORDERED: EPHEDRINE 25 MG/5 ML SYRINGE ONE (11:08)
[2019-11-26] MEDS ORDERED: Ondansetron PF 4 MG/2 ML Vial ONE (11:08)
[2019-11-26] MEDS ORDERED: PROPOFOL 200 MG/20 ML VIAL ONE (11:08)
[2019-11-26] MEDS ORDERED: Rocuronium Bromide 10 MG/ML (10ML VIAL) ONE (11:08)
[2019-11-26] MEDS ORDERED: Fentanyl 100 MCG/2 ML VIAL ONE (11:14)
[2019-11-26] MEDS ORDERED: Midazolam HCl 2 mg/2 ml Vial ONE (11:14)
[2019-11-26] MEDS ORDERED: Heparin 25,000 units/D5W 500 ML ONE (12:05)
[2019-11-26] MEDS ORDERED: Protamine Sulfate 50 MG/5 ML VIAL ONE ×2 (13:46)
[2019-11-26] MEDS ORDERED: Acetaminophen/Codeine 30-300mg Tablet ONE ×2 (14:45→14:50)
[2019-11-26] MEDS ORDERED: Ketorolac Tromethamine 30 MG/ML VIAL IVP PRN (14:47)
[2019-11-26] MEDS ORDERED: Ondansetron HCl/PF 4 MG/2 ML Vial IVP PRN (14:49)
[2019-11-26] MEDS ORDERED: Promethazine HCl 25 MG/ML VIAL IM/IV PRN (14:49)
[2019-11-26] MEDS ORDERED: HYDROcodone/Acetaminophen 5/325 mg Tablet PO PRN ×2 (14:51→14:52)
[2019-11-26] MEDS ORDERED: Morphine 2 MG/ML SYRINGE SLOW IVP PRN (14:53)
[2019-11-26] MEDS ORDERED: Acetaminophen/Codeine 30-300mg Tablet PO PRN ×2 (15:00)
--- NOTE | 2019-11-26 16:45 | OP ---
DATE OF PROCEDURE: 11/26/2019 PROCEDURE PERFORMED: Electrophysiology study and radiofrequency ablation. REASON FOR PROCEDURE: Mr. Rankin is a 74-year-old male with history of new onset atrial fibrillation noted in October with difficult ventricular rate control and failing Multaq with recurrence. He has been well anticoagulated over a month, is here for a pulmonary venous isolation procedure. DESCRIPTION OF PROCEDURE: The patient received general anesthesia by Anesthesia specialist. After adequate level of sedation achieved, the left and right femoral venous areas were prepped, draped, and anesthetized using subcutaneous lidocaine. Under ultrasound guidance, both femoral veins were cannulated, and on the left side, 8 and 11-Mauritian sheaths were used to advance an intracardiac echocardiogram probe to the right atrium, but it was used to monitor the transeptal puncture, the catheter manipulation, and the pericardial space throughout the procedure. Also on the left side, a Preface sheath was used to advance a Duo-Deca catheter into the CS and the right atrial position. From the right side, two 8-Mauritian short sheaths were introduced, through which a ThermoCool SFST catheter was advanced to the right atrium, where 3D map of the right atrium was obtained. Following that, IV heparin was administered in bolus and drip fashion and it was adjusted throughout the case to keep ACT over 350. On the right femoral vein, the short sheath was exchanged to two SL1 sheaths. A transseptal puncture was performed through these sheaths with the help of a powered [place] needle under ultrasound and fluoroscopic monitoring. Through the SL1 sheaths, a ThermoCool SFST ablation catheter and a 20-pole Lasso catheter were advanced to the left atrium. 3D map of the left atrium was obtained. Following that, standard four vein wide area antral circumferential isolation of the pulmonary veins were performed, both left inferior and superior as well as right inferior and superior pulmonary veins were isolated. A roof line and inferoposterior line were drawn to isolate the posterior wall. Throughout the posterior wall foster, an esophageal temperature probe was used to monitor the esophageal temperature to avoid excessive heating. Any minor heating was met with high-flow irrigation. At the end of the case, Isuprel was administered and any reconnection re-ablated. That was administered at 20 mcg at 10 minutes. All 4 pulmonary veins and posterior wall remained isolated. The patient remained in sinus rhythm. The catheter was removed from the left side and IV heparin was stopped and reversed with protamine. The following numerical findings were noted. Total RF lesions delivered, 75 lesions at 40 ferreira. Total RF time was 21 minute and 38 seconds. The baseline rhythm is sinus rhythm, AH interval 39 milliseconds, the AV Wenckebach cycle length was 320 milliseconds, Wenckebach cycle length was 280 milliseconds, AV zhang ERP was 600/260 milliseconds. No dual AV zhang physiology was seen. LV pacing was performed with a catheter during the case and no accessory pathway was found. At the end of the case, the intracardiac echocardiogram probe proved no evidence of effusion and cardiac silhouette did not change throughout the case either. The catheter was removed from the body. Long sheaths were exchanged for short sheaths, and under ultrasound guidance, all 4 femoral venous access sites were closed with Vascade closure device. The patient tolerated the procedure well, left with extubated state. No complications noted. CONCLUSION: 1. Successful left superior, left inferior, right superior, and right inferior pulmonary vein isolation as well as posterior wall of the left atrium isolated as well with roof and inferior lines. 2. Normal sinus zhang and AV zhang function. No evidence of accessory pathway or dual AV zhang physiology found. 3. No additional atrial arrhythmias are induced. PLAN: Resume oral anticoagulation and taper off AV zhang blocking agents. Monitor for recurrent arrhythmias. Job ID: [id number]
[2019-11-26] MEDS ORDERED: HYDROcodone/Acetaminophen 7.5/325 mg Tablet PO PRN (17:08)
[2019-11-26] MEDS ORDERED: Acetaminophen 500 MG TAB PO PRN (17:13)
[2019-11-26] MEDS: Sucralfate 1 GM TAB PO SCH ×2 (17:24→23:04)
[2019-11-26] MEDS: Mometasone 100 MCG/Formoterol 5 MCG 120 PUFF INHALER INH SCH (18:27)
[2019-11-26] MEDS: Apixaban 5 MG TAB PO SCH (20:25)
[2019-11-26] MEDS ORDERED: Atorvastatin Calcium 10 MG TAB PO SCH (21:00)
[2019-11-26] MEDS ORDERED: Gabapentin 300 MG CAP PO SCH (21:00)
[2019-11-27] MEDS: Sucralfate 1 GM TAB PO SCH ×2 (05:35→11:07)
[2019-11-27] MEDS: Mometasone 100 MCG/Formoterol 5 MCG 120 PUFF INHALER INH SCH (07:43)
[2019-11-27] MEDS: Apixaban 5 MG TAB PO SCH (08:20)
[2019-11-27] MEDS ORDERED: Lisinopril 20 MG TAB PO SCH (09:00)
[2019-11-27] MEDS ORDERED: Hydrochlorothiazide 25 MG TAB PO SCH (09:00)
[2019-11-27] MEDS ORDERED: Vit A,C & E/Lutein/Minerals Tablet PO SCH (09:00)
[2019-11-27] MEDS ORDERED: Aspirin Chewable 81 MG TAB PO SCH (09:00)
[2019-11-27 11:35] VITALS: BP 167/86; TEMP 98
--- NOTE | 2019-11-28 08:33 | EKG ---
Test Reason : STAT Blood Pressure : / mmHG Vent. Rate : 097 BPM Atrial Rate : 097 BPM P-R Int : 160 ms QRS Dur : 102 ms QT Int : 372 ms P-R-T Axes : 094 043 102 degrees QTc Int : 472 ms Normal sinus rhythm Nonspecific ST and T wave abnormality Prolonged QT Abnormal ECG When compared with ECG of 26-NOV-2019 15:09, (Unconfirmed) No significant change was found Confirmed by DR. Dk STEVENS ([id number]) on 11/28/2019 8:33:24 AM Referred By: ALEJO SHIPLEY Confirmed By:DR. Dk STEVENS
--- NOTE | 2019-11-28 08:33 | EKG ---
Test Reason : Blood Pressure : / mmHG Vent. Rate : 085 BPM Atrial Rate : 085 BPM P-R Int : 140 ms QRS Dur : 104 ms QT Int : 406 ms P-R-T Axes : 092 040 105 degrees QTc Int : 483 ms Normal sinus rhythm Nonspecific ST and T wave abnormality Prolonged QT Abnormal ECG When compared with ECG of 26-NOV-2019 09:07, (Unconfirmed) No significant change was found Confirmed by DR. Dk STEVENS ([id number]) on 11/28/2019 8:32:52 AM Referred By: VIOLETTA Confirmed By:DR. Dk STEVENS
== END 2019-11-27 12:35 | disposition home or self-care (01) ==
LOC: CCL 08:26 → 2NO 15:11
PROVIDERS: ADMIT Internal Medicine Cardiovascular Disease; ATTEND Internal Medicine Cardiovascular Disease
PROC: 4A023FZ Measurement of Cardiac Rhythm, Percutaneous Approach (ICD-10-PCS; principal; 2019-11-26)
PROC: 4A0234Z Measurement of Cardiac Electrical Activity, Percutaneous Approach (ICD-10-PCS; 2019-11-26)
PROC: 02583ZZ Destruction of Conduction Mechanism, Percutaneous Approach (ICD-10-PCS; 2019-11-26)
DX: I48.19 Other persistent atrial fibrillation (principal); I48.92 Unspecified atrial flutter; I10 Essential (primary) hypertension; I25.10 Atherosclerotic heart disease of native coronary artery without angina pectoris; J45.909 Unspecified asthma, uncomplicated; E78.5 Hyperlipidemia, unspecified; Z79.01 Long term (current) use of anticoagulants; Z79.82 Long term (current) use of aspirin; Z79.899 Other long term (current) drug therapy; Z87.891 Personal history of nicotine dependence
CPT/HCPCS: 76942; 85347 ×2; 93005; 93613; 93623; 93655; 93656; 93662; 94640 ×2; C1732 ×3; C1759; C1884; 93010; G0378; J1100; J1644; J2001; J2250; J2405; J2704; J2720; J3010

== ENCOUNTER 2020-06-15 19:30 | Outpatient (CLI) | payer MEDICARE | END 2020-06-15 19:31 | disposition home or self-care (01) | LOC: SLEEPLAB 19:30 | PROVIDERS: ATTEND Internal Medicine Critical Care Medicine | DX: G47.33 Obstructive sleep apnea (adult) (pediatric) (principal); R51.9 Headache, unspecified; R06.83 Snoring; G47.00 Insomnia, unspecified; I10 Essential (primary) hypertension; I49.9 Cardiac arrhythmia, unspecified; E66.9 Obesity, unspecified; G47.10 Hypersomnia, unspecified; I48.91 Unspecified atrial fibrillation; G47.61 Periodic limb movement disorder; Z68.30 Body mass index [BMI] 30.0-30.9, adult | CPT/HCPCS: 95810 ==

== ENCOUNTER 2020-06-29 19:30 | Outpatient (CLI) | payer MEDICARE | END 2020-06-29 19:31 | disposition home or self-care (01) | LOC: SLEEPLAB 19:30 | PROVIDERS: ATTEND Internal Medicine Critical Care Medicine | DX: G47.33 Obstructive sleep apnea (adult) (pediatric) (principal); R51.9 Headache, unspecified; R06.83 Snoring; G47.00 Insomnia, unspecified; I11.9 Hypertensive heart disease without heart failure; G47.10 Hypersomnia, unspecified; E66.9 Obesity, unspecified; Z68.34 Body mass index [BMI] 34.0-34.9, adult | CPT/HCPCS: 95811 ==

== ENCOUNTER 2021-03-21 14:05 | Outpatient (CLI) | payer MEDICARE | END 2021-03-21 14:06 | disposition home or self-care (01) | LOC: BICULT 14:05 | PROVIDERS: ATTEND Family Medicine | DX: G45.9 Transient cerebral ischemic attack, unspecified (principal); R42 Dizziness and giddiness | CPT/HCPCS: 93880 ==

== ENCOUNTER 2021-04-21 08:18 | Outpatient (CLI) | payer MEDICARE | END 2021-04-21 08:19 | disposition home or self-care (01) | LOC: BICMRI 08:18 | PROVIDERS: ATTEND Family Medicine | DX: R42 Dizziness and giddiness (principal); I67.89 Other cerebrovascular disease | CPT/HCPCS: 70551 ==

== ENCOUNTER 2021-12-30 07:53 | Outpatient (CLI) | payer MEDICARE ==
[2021-12-30 08:26] LABS: Hemoglobin 13.3 g/dL (13.5-17.5); Mean Corpuscular HGB CONC 33.8 g/dL (32.0-36.0); Mean Corpuscular Hemoglobin 31.8 pg (27.0-33.0); Mean Platelet Volume 8.9 fl (7.4-10.4); Platelet Count 198 10x3/uL (150-450); Red Blood Cell (RBC) Count 4.18 10x6/uL (4.32-5.72); White Blood Cell (WBC) Count 5.4 10x3/uL (3.5-10.5)
[2021-12-30 08:40] LABS: Anion Gap 16 mmol/L (10-20); BUN (Urea Nitrogen) 24 mg/dL (8.4-25.7); Calc. Creatinine Clearance 0 mL/min (70-130); Calcium 9.4 mg/dL (7.8-10.44); Carbon Dioxide 27 mmol/L (23-31); Chloride 101 mmol/L (98-107); Estimated GFR 85; Glucose 145 mg/dL (83-110); Potassium 3.6 mmol/L (3.5-5.1); Sodium 140 mmol/L (136-145)
== END 2021-12-30 07:54 | disposition home or self-care (01) ==
LOC: LABBT 07:53
PROVIDERS: ATTEND Neurological Surgery
DX: Z01.812 Encounter for preprocedural laboratory examination (principal); M54.12 Radiculopathy, cervical region; Z20.822 Contact with and (suspected) exposure to COVID-19
CPT/HCPCS: 80048; 85027; 87811

== ENCOUNTER 2021-12-30 08:00 | Inpatient (IN) | payer MEDICARE ==
[2022-01-02 11:09] VITALS: BMI 30.1
[2022-01-04] MEDS ORDERED: fentaNYL Citrate/PF 100 MCG/2 ML SYRINGE ONE (06:15)
[2022-01-04] MEDS ORDERED: Thrombin 5000 UNITS/5 ML VIAL ONE (06:26)
[2022-01-04] MEDS ORDERED: Sodium Chloride 0.9% 100 ML ONE ×2 (06:37→10:01)
[2022-01-04] MEDS ORDERED: CEFAZOLIN 2 GM VIAL ONE ×2 (06:37→10:01)
[2022-01-04] MEDS ORDERED: Ondansetron PF 4 MG/2 ML Vial ONE (06:59)
[2022-01-04] MEDS ORDERED: PROPOFOL 200 MG/20 ML VIAL ONE (06:59)
[2022-01-04] MEDS ORDERED: Dexamethasone 20 MG/5 ML VIAL ONE (06:59)
[2022-01-04] MEDS ORDERED: Rocuronium Bromide 10 MG/ML (10ML VIAL) ONE (06:59)
[2022-01-04] MEDS ORDERED: Lidocaine 1% PF 5 ML VIAL ONE ×2 (06:59)
[2022-01-04] MEDS ORDERED: SUGAMMADEX SODIUM 200 MG/2 ML VIAL ONE (08:00)
[2022-01-04] MEDS ORDERED: Tamsulosin HCl 0.4 MG CAP ONE (08:36)
[2022-01-04] MEDS ORDERED: Acetaminophen/Codeine 30-300mg Tablet ONE (09:20)
== END 2022-01-04 10:59 | disposition home or self-care (01) | DRG 473 ==
LOC: SURG A 01-04 07:56
PROVIDERS: ADMIT Neurological Surgery; ATTEND Neurological Surgery
PROC: 0RG20A0 Fusion of 2 or more Cervical Vertebral Joints with Interbody Fusion Device, Anterior Approach, Anterior Column, Open Approach (ICD-10-PCS; principal; 2022-01-04)
PROC: 0RB30ZZ Excision of Cervical Vertebral Disc, Open Approach (ICD-10-PCS; 2022-01-04)
DX: M48.02 Spinal stenosis, cervical region (principal); M43.12 Spondylolisthesis, cervical region; M50.121 Cervical disc disorder at C4-C5 level with radiculopathy; Z20.822 Contact with and (suspected) exposure to COVID-19; J45.909 Unspecified asthma, uncomplicated; I10 Essential (primary) hypertension; Z79.899 Other long term (current) drug therapy; Z79.51 Long term (current) use of inhaled steroids
CPT/HCPCS: 76000; C1713; J0690; J1100; J2405; J2704; J3490

== ENCOUNTER 2023-04-12 08:57 | Outpatient (CLI) | payer MEDICARE | END 2023-04-12 08:58 | disposition home or self-care (01) | LOC: LABBT 08:57 | PROVIDERS: ATTEND Orthopaedic Surgery | DX: Z01.818 Encounter for other preprocedural examination (principal); M17.11 Unilateral primary osteoarthritis, right knee | CPT/HCPCS: 71046; 93005; 93010 ==

== ENCOUNTER 2023-04-16 05:29 | Observation (INO) | payer MEDICARE ==
[2023-04-12 09:17] VITALS: BMI 31.4
[2023-04-12 10:11] LABS: Bilirubin Neg (Negative); Blood, Urine Negative (Negative); Clarity Clear (Clear); Glucose, Urine (Dipstick) Normal (Negative); Ketone, Urine 5 mg/dL (Negative); Leukocyte 25 (Negative); Nitrite Negative (Negative); Protein, Urine (Dipstick) 30 mg/dl (Neg-Trace); Urobilinogen Normal mg/dL (Less than 2)
[2023-04-12 10:21] LABS: #Basophils 0.1 10x3/uL (0.0-0.2); #Eosinphils 0.3 10x3/uL (0.0-0.5); #Monocytes 0.6 10x3/uL (0.0-1.1); #Neutrophils 3.3 10x3/uL (1.5-8.4); %Basophils 1.2 % (0.0-2.0); %Lymphocytes 24.3 % (18.0-47.0); %Monocytes 10.1 % (0.0-10.0); Hematocrit 41.3 % (38.8-50.0); Hemoglobin 13.5 g/dL (13.5-17.5); Mean Corpuscular HGB CONC 32.7 g/dL (32.0-36.0); Mean Corpuscular Volume 94.9 fl (81.2-95.1); Mean Platelet Volume 9.2 fl (7.4-10.4); Platelet Count 219 10x3/uL (150-450); RBC Distribution Width 13.5 % (11.5-14.5); Red Blood Cell (RBC) Count 4.35 10x6/uL (4.32-5.72); White Blood Cell (WBC) Count 5.6 10x3/uL (3.5-10.5)
[2023-04-12 10:33] LABS: Prothrombin Time 10.3 sec (9.5-12.1)
[2023-04-12 10:40] LABS: Anion Gap 17 mmol/L (10-20); BUN (Urea Nitrogen) 20 mg/dL (8.4-25.7); Calc. Creatinine Clearance 0 mL/min (70-130); Calcium 9.1 mg/dL (7.8-10.44); Carbon Dioxide 25 mmol/L (23-31); Chloride 104 mmol/L (98-107); Estimated GFR 88; Glucose 157 mg/dL (83-110); Potassium 3.9 mmol/L (3.5-5.1); Sodium 142 mmol/L (136-145)
[2023-04-16] MEDS ORDERED: Vancomycin (BATCH) 1.5 GM/300 ML BAG ONE (05:49)
[2023-04-16] MEDS ORDERED: Tranexamic Acid 1,000 MG/10 ML VIAL ONE ×2 (05:49→12:14)
[2023-04-16] MEDS ORDERED: Sodium Chloride 0.9% 100 ML ONE ×2 (05:49→07:01)
[2023-04-16] MEDS ORDERED: Midazolam HCl 2 mg/2 ml Vial ONE (06:33)
[2023-04-16] MEDS ORDERED: fentaNYL 50 mcg/mL 1 mL Vial ONE ×5 (06:34→10:08)
[2023-04-16] MEDS ORDERED: Lidocaine 1% PF 5 ML VIAL ONE (06:44)
[2023-04-16] MEDS ORDERED: ePHEDrine Sulfate 50 MG/10 ML VIAL ONE (06:44)
[2023-04-16] MEDS ORDERED: PROPOFOL 200 MG/20 ML VIAL ONE (06:44)
[2023-04-16] MEDS ORDERED: Bupivacaine HCl 0.5%/Epinephrine 1:200,000/PF 30 ml Vial ONE (06:44)
[2023-04-16] MEDS ORDERED: Dexamethasone 20 MG/5 ML VIAL ONE (06:44)
[2023-04-16] MEDS ORDERED: Ondansetron PF 4 MG/2 ML Vial ONE (06:44)
[2023-04-16] MEDS ORDERED: Bupivacaine 0.25% HCL 30 ML VIAL ONE (06:50)
[2023-04-16] MEDS ORDERED: CEFAZOLIN 2 GM VIAL ONE (07:01)
[2023-04-16] MEDS ORDERED: fentaNYL 50 mcg/mL 1 mL Vial SLOW IVP PRN (07:21)
[2023-04-16] MEDS ORDERED: Zolpidem Tartrate 5 MG TAB PO PRN ×2 (07:30→11:48)
[2023-04-16] MEDS ORDERED: Ondansetron PF 4 MG/2 ML Vial IVP PRN ×2 (07:30→11:48)
[2023-04-16] MEDS ORDERED: Ropivacaine 0.2% 550 ML 550 ML NERVE BLCK SCH (07:30)
[2023-04-16] MEDS ORDERED: Promethazine HCl 25 MG/ML VIAL IM PRN ×3 (07:30→11:48)
[2023-04-16] MEDS ORDERED: traMADol HCl 50 MG TAB PO PRN ×2 (07:30)
[2023-04-16] MEDS ORDERED: HYDROcodone/Acetaminophen 10/325 mg Tablet PO PRN ×2 (07:30)
[2023-04-16] MEDS ORDERED: HYDROmorphone 2 MG/ML VIAL SLOW IVP PRN (07:58)
[2023-04-16] MEDS ORDERED: Ondansetron HCl/PF 4 MG/2 ML Vial IVP PRN (07:58)
[2023-04-16] MEDS ORDERED: Meperidine HCl/PF 25 MG/ML VIAL SLOW IVP PRN (07:58)
[2023-04-16] MEDS ORDERED: Bupivacaine PF 0.5% 30 ML VIAL ONE (08:00)
[2023-04-16] MEDS ORDERED: HYDROmorphone 0.5 MG/0.5 ML SYRINGE ONE (10:38)
[2023-04-16] MEDS ORDERED: Ketorolac Tromethamine 30 MG/ML VIAL ONE (11:36)
[2023-04-16] MEDS: Ketorolac Tromethamine 30 MG/ML VIAL IVP SCH ×3 (11:46→23:55)
[2023-04-16] MEDS ORDERED: diphenhydrAMINE 25 MG CAP PO PRN (11:48)
[2023-04-16] MEDS ORDERED: Acetaminophen 325 MG TAB PO PRN (11:48)
[2023-04-16] MEDS ORDERED: Albuterol 200 PUFF (6.7GM INHALER) INH PRN (11:49)
[2023-04-16] MEDS ORDERED: Non-Formulary Item 1 EACH (Celecoxib [Celebrex] 200 MG Capsule) PO PRN (11:49)
[2023-04-16] MEDS ORDERED: Tranexamic Acid 1,000 MG in Sodium Chloride 0.9% 100 ML IVPB SCH (12:00)
[2023-04-16] MEDS ORDERED: CeleCOXIB 100 MG CAP PO PRN (13:03)
[2023-04-16] MEDS: Sodium Chloride 0.9% 1,000 ML IV SCH ×2 (14:23→23:53)
[2023-04-16] MEDS: CEFAZOLIN 2 GM in Sodium Chloride 0.9% 100 ML IVPB SCH ×2 (14:24→22:23)
[2023-04-16] MEDS ORDERED: Vancomycin 1.5 GM in Sodium Chloride 0.9% 250 ML 300 ML IVPB SCH (18:00)
[2023-04-16] MEDS: Mometasone 100 MCG/Formoterol 5 MCG 120 PUFF INHALER INH SCH (18:17)
[2023-04-16] MEDS: Senokot S 8.6-50 MG TAB PO SCH (20:19)
[2023-04-16] MEDS: Aspirin 81 mg Enteric Coated Tablet PO SCH (20:21)
[2023-04-16] MEDS: Ferrous Gluconate 324 MG TAB PO SCH (20:21)
[2023-04-16] MEDS ORDERED: Lisinopril 10 MG TAB PO SCH (21:00)
[2023-04-16] MEDS ORDERED: dilTIAZem CD 180 MG CAP PO SCH (21:00)
[2023-04-16] MEDS ORDERED: DILTIAZEM HCL 360 MG PO SCH (21:00)
[2023-04-16] MEDS ORDERED: Simvastatin 20 MG TAB PO SCH (21:00)
[2023-04-16] MEDS ORDERED: Ipratropium Bromide 0.03% Nasal Inhaler 30 ml Bottle EA NARE SCH (21:00)
[2023-04-16] MEDS ORDERED: Gabapentin 300 MG CAP PO SCH ×2 (21:00)
[2023-04-16] MEDS ORDERED: Atorvastatin Calcium 10 MG TAB PO SCH (21:00)
[2023-04-16] MEDS ORDERED: Lisinopril 20 MG TAB PO SCH (21:00)
[2023-04-16] MEDS ORDERED: Non-Formulary Item 1 EACH (Budesonide-Formoterol [Symbicort 80-4.5] 80 MG/4.5 MG Aer) INH SCH (21:00)
[2023-04-16] MEDS ORDERED: Zolpidem Tartrate 5 MG TAB PO SCH (21:00)
[2023-04-16] MEDS ORDERED: Non-Formulary Item 1 EACH (Eszopiclone [Lunesta] 3 MG Tablet) PO SCH (21:00)
[2023-04-17] MEDS: Ipratropium Bromide 0.03% Nasal Inhaler 30 ml Bottle EA NARE SCH ×2 (03:15→09:05)
[2023-04-17 05:07] LABS: Hematocrit 33.6 % (42.0-52.0); Hemoglobin 11.1 g/dL (14.0-18.0); Mean Corpuscular Hemoglobin 31.2 pg (27.0-31.0); Mean Corpuscular Volume 94.4 fl (78.0-98.0); Mean Platelet Volume 9.5 fL (7.4-10.4); Platelet Count 186 10x3/uL (130-400); RBC Distribution Width 13.6 % (11.5-14.5); Red Blood Cell (RBC) Count 3.56 mill/uL (4.70-6.10)
[2023-04-17] MEDS: Ketorolac Tromethamine 30 MG/ML VIAL IVP SCH (05:26)
[2023-04-17] MEDS: Mometasone 100 MCG/Formoterol 5 MCG 120 PUFF INHALER INH SCH (07:40)
[2023-04-17 08:14] VITALS: BP 133/73; TEMP 98
[2023-04-17] MEDS: Sodium Chloride 0.9% 1,000 ML IV SCH (08:55)
[2023-04-17] MEDS: Ferrous Gluconate 324 MG TAB PO SCH (08:58)
[2023-04-17] MEDS: Aspirin 81 mg Enteric Coated Tablet PO SCH (08:58)
[2023-04-17] MEDS: Senokot S 8.6-50 MG TAB PO SCH (08:58)
[2023-04-17] MEDS ORDERED: Aspirin 81 mg Enteric Coated Tablet PO SCH (09:00)
[2023-04-17] MEDS ORDERED: Multivitamin W/ Minerals 1 TAB PO SCH (09:00)
[2023-04-17] MEDS ORDERED: Hydrochlorothiazide 25 MG TAB PO SCH (09:00)
[2023-04-17] MEDS ORDERED: Non-Formulary Item 1 EACH (Hydrochlorothiazide [Hydrochlorothiazide] 50 MG Tablet) PO SCH (09:00)
[2023-04-17] MEDS ORDERED: Amlodipine 5 MG TAB PO SCH (09:00)
== END 2023-04-17 12:15 | disposition home or self-care (01) ==
LOC: SDC 05:29 → SURG B 11:48
PROVIDERS: ADMIT Orthopaedic Surgery; ATTEND Orthopaedic Surgery
PROC: 0SRC0JZ Replacement of Right Knee Joint with Synthetic Substitute, Open Approach (ICD-10-PCS; principal; 2023-04-16)
DX: M17.11 Unilateral primary osteoarthritis, right knee (principal); I10 Essential (primary) hypertension; J45.909 Unspecified asthma, uncomplicated; I48.91 Unspecified atrial fibrillation; Z90.49 Acquired absence of other specified parts of digestive tract; Z87.891 Personal history of nicotine dependence; Z79.899 Other long term (current) drug therapy
CPT/HCPCS: 27447; 80048; 81003; 85025; 85027; 85610; 86850; 86900; 86901; 87081; 94640 ×2; 94664 ×2; 97110; 97116 ×2; 97530 ×2; A4306; C1776; J3010; J3370; 36415; J1100; J1170; J1885; J2250; J2405; J2704; J2795; J3490; J7050; S0020

== ENCOUNTER 2024-03-05 09:06 | Outpatient (CLI) | payer MEDICARE, OTHER ==
[2024-03-05 10:20] LABS: #Basophils 0.05 10x3/uL (0.0-0.2); %Basophils 0.8 % (0.0-1.0); %Eosinophils 7.5 % (0.0-10.0); %Lymphocytes 18.2 % (21.0-51.0); %Monocytes 11.5 % (0.0-10.0); %Neutrophils 61.7 % (42.0-75.0); Hematocrit 37.8 % (42.0-52.0); Hemoglobin 12.5 g/dL (14.0-18.0); Mean Corpuscular HGB CONC 33.1 g/dL (32.0-36.0); Mean Corpuscular Hemoglobin 30.9 pg (27.0-31.0); Mean Corpuscular Volume 93.6 fL (78.0-98.0); Platelet Count 186 10x3/uL (130-400); RBC Distribution Width 13.8 % (11.5-14.5); Red Blood Cell (RBC) Count 4.04 mill/uL (4.70-6.10)
[2024-03-05 10:51] LABS: Anion Gap 12 mmol/L (10-20); BUN (Urea Nitrogen) 21 mg/dL (8.4-25.7); Calc. Creatinine Clearance 0 mL/min (70-130); Calcium 9.6 mg/dL (7.8-10.44); Carbon Dioxide 26 mmol/L (23-31); Chloride 106 mmol/L (98-107); Estimated GFR 87; Glucose 108 mg/dL (83-110); Sodium 140 mmol/L (136-145)
== END 2024-03-05 09:07 | disposition home or self-care (01) ==
LOC: LABBT 09:06
PROVIDERS: ATTEND Neurological Surgery
DX: Z01.818 Encounter for other preprocedural examination (principal); M48.061 Spinal stenosis, lumbar region without neurogenic claudication
CPT/HCPCS: 80048; 85025; 93005; 93010

== ENCOUNTER 2024-03-12 06:16 | Day surgery (SDC) | payer MEDICARE, OTHER ==
[2024-03-05 09:19] VITALS: BMI 30.1
[2024-03-12] MEDS ORDERED: Thrombin 5000 UNITS/5 ML VIAL ONE (06:17)
[2024-03-12] MEDS ORDERED: EPINEPHrine 1 MG/ML VIAL ONE (06:17)
[2024-03-12] MEDS ORDERED: Bupivacaine PF 0.5% 30 ML VIAL ONE (06:18)
[2024-03-12] MEDS ORDERED: fentaNYL PF 100 MCG/2 ML SYRINGE ONE ×2 (06:35→08:40)
[2024-03-12] MEDS ORDERED: PROPOFOL 20 ML ONE (06:35)
[2024-03-12] MEDS ORDERED: Rocuronium Bromide 10 MG/ML (10ML VIAL) ONE (06:35)
[2024-03-12] MEDS ORDERED: Lidocaine 1% PF 5 ML VIAL ONE (06:35)
[2024-03-12] MEDS ORDERED: Sodium Chloride 0.9% 100 ML ONE ×2 (06:53→11:11)
[2024-03-12] MEDS ORDERED: CEFAZOLIN 2 GM VIAL ONE ×2 (06:53→11:08)
[2024-03-12] MEDS ORDERED: PHENYLEPHRINE-NS 100 MCG/ML 10 ML SYRINGE ONE (07:30)
[2024-03-12] MEDS ORDERED: Ondansetron PF 4 MG/2 ML Vial ONE (07:43)
[2024-03-12] MEDS ORDERED: Dexamethasone 20 MG/5 ML VIAL ONE (07:43)
[2024-03-12] MEDS ORDERED: ePHEDrine Sulfate 50 MG/10 ML VIAL ONE (07:57)
[2024-03-12] MEDS ORDERED: SUGAMMADEX SODIUM 200 MG/2 ML VIAL ONE (08:32)
[2024-03-12] MEDS ORDERED: Tamsulosin HCl 0.4 MG CAP ONE (09:57)
== END 2024-03-12 12:30 | disposition home or self-care (01) ==
LOC: SDC 06:16
PROVIDERS: ATTEND Neurological Surgery
PROC: 01NB0ZZ Release Lumbar Nerve, Open Approach (ICD-10-PCS; principal; 2024-03-12)
DX: M48.062 Spinal stenosis, lumbar region with neurogenic claudication (principal); M54.16 Radiculopathy, lumbar region
CPT/HCPCS: 63047; 63048; J0171; J0665; J1100; J2405; J2704; C1713; C1889

== ENCOUNTER 2024-05-05 13:26 | Outpatient (CLI) | payer MEDICARE, OTHER | END 2024-05-05 13:27 | disposition home or self-care (01) | LOC: BICRAD 13:26 | PROVIDERS: ATTEND Neurological Surgery | DX: M54.16 Radiculopathy, lumbar region (principal); M16.11 Unilateral primary osteoarthritis, right hip ==